=== PATIENT | male | born 2000 | race Caucasian/White ===

== ENCOUNTER 2023-04-18 16:42 | Emergency (ER) | payer BC, SELFPAY ==
[2023-04-18 16:53] VITALS: BP 101/65; PULSE 112; RESP 16; TEMP 37.4; O2SAT 99
--- NOTE | 2023-04-18 16:59 | ED.NAVMDI ---
HPI - Nausea/Vomiting/Diarrhea General Chief complaint: Nausea/Vomiting/Diarrhea Stated complaint: Nausea;Diarrhea;Stye Time Seen by Provider: 04/18/23 16:55 Source: patient Mode of arrival: ambulatory Limitations: no limitations History of Present Illness HPI Narrative: Vladimir is a 22-year-old male patient presenting to clinic today with complaints of nausea, vomiting, diarrhea since 2:00 a.m. this morning. He reports that he has vomited 6-7 times and has had 3 diarrhea stools. He denies any stomach pain. He denies any blood in his stool. He denies any fever, chills, or sore throat. Also reports he has had a stye to the left lower eye lid this been there for almost 2 weeks. Area is painful and tender to touch Related Data Allergies Allergy/AdvReac Type Severity Reaction Status Date / Time No Known Allergies Allergy Unverified 11/04/17 14:22 Review of Systems Review of Systems: Pertinent positives per HPI. Patient denies any fever, chills, rash, headache, visual changes, dizziness, cough, runny nose, sore throat, shortness of breath, chest pain, palpitations,constipation, abdominal pain, or any urinary issues. PMFSH Social History Social History Smoking status: Never smoker Alcohol intake: never Comments At the time of my signature, I reviewed and agree with the nursing past medical, surgical, social, and family history. There is no relevant family history pertinent to the patient complaint. Exam Narrative: General: Well-developed, well nourished, in no apparent distress Head: Normocephalic, atraumatic Eyes: Pupils equally round and reactive to light bilaterally, EOM intact, sclera and conjunctive clear, no discharge, small pustule area noted to the left lower eyelid, mild swelling with tenderness to palpation Ears: TMs intact and clear, ear canals clear, no drainage, grossly hearing normal. Nose: Nares patent, no discharge, no inflammation, no sinus tenderness. Mouth: Oropharynx without lesions or masses, good dentition, MMM. Neck: Supple, trachea midline, no enlargement of anterior or posterior cervical nodes, no thyroid masses or goiter palpable. Cardio: Regular rate and rhythm, s1 and s2 normal, no murmur appreciated. Resp: Clear to auscultation bilaterally anteriorly and posteriorly, no rhonchi, rales, wheezing or rubs Abdomen: Soft, pliable, bowel sounds present in all quadrants, non-tender to palpation, no organomegly, no CVAT tenderness. Course Course Emergency Course: Portions of this record may have been created with voice recognition software. Level of Care: Express Care Visit Vital Signs Vital signs: Vital Signs Temperature 37.4 C 04/18/23 16:53 Pulse Rate 112 H 04/18/23 16:53 Respiratory Rate 16 04/18/23 16:53 Blood Pressure 101/65 04/18/23 16:53 Pulse Oximetry 99 04/18/23 16:53 Temperature 37.4 C 04/18/23 16:53 Pulse Rate 112 H 04/18/23 16:53 Respiratory Rate 16 04/18/23 16:53 Blood Pressure 101/65 04/18/23 16:53 Pulse Oximetry 99 04/18/23 16:53 Vital signs reviewed MDM - Nausea/Vomiting/Diarrhea MDM Narrative Medical decision making narrative: At the time of visit patient is resting comfortably on the exam table. COVID and influenza testing was negative in the clinic today. I suspect patient has gastroenteritis and an external stye to the left lower eyelid. Will send in prescription for polymyxin and Zofran. Supportive measures were discussed with the patient he voiced understanding discharge instructions and agrees to treatment plan. Differential Diagnosis Differential diagnosis: Likely traveler's diarrhea, food poisoning, gastroenteritis, clostridium difficile infection, drug-induced nausea and vomiting, dehydration and other (COVID and influenza) Discharge Plan Discharge Clinical Impression: Gastroenteritis Sty, external Qualifiers: Laterality: left Eyelid: lower Qualified Code(s): H00.015 - Hordeolum externum left lower
== END 2023-04-18 17:31 | disposition home or self-care (01) ==
PROVIDERS: Emergency Provider Nurse Practitioner Family; PCP Nurse Practitioner Family
DX: K52.9 Noninfective gastroenteritis and colitis, unspecified (principal); H00.015 Hordeolum externum left lower eyelid; Z20.822 Contact with and (suspected) exposure to COVID-19
CPT/HCPCS: 87426; 87804; 99203; C9803; G0463